=== PATIENT | female | born 1960 | race African-American/Black ===

== ENCOUNTER 2019-10-17 23:10 | Inpatient (IN) | payer OTHER ==
[~2019-10-17] VITALS: Ht 165.1 cm; Wt 29.5 kg
[2019-10-17] MEDS ORDERED: ONDANSETRON HCL 4MG/2ML INJ IV STA (23:15)
[2019-10-17] MEDS ORDERED: ALBUTEROL (0.083%) 2.5MG/3ML NEB HHN STA (23:15)
[2019-10-17] MEDS ORDERED: IPRATROPIUM BROMIDE (0.02%) 0.5MG/2.5ML NEB HHN STA (23:15)
[2019-10-17] MEDS ORDERED: METHYLPREDNISOLONE SOD SUCC 125 MG/2 ML VIAL IV STA (23:15)
[2019-10-17 23:44] LABS: BASOPHILS % 0.8 % (0.0-2.0); EOSINOPHILS % 8.8 % (0.0-5.0); HEMATOCRIT. 47.8 % (36.0-48.0); HEMOGLOBIN. 15.9 g/dL (12.0-16.0); LYMPHOCYTES % 19.8 % (20.0-50.0); MEAN CORPUSCULAR VOLUME 90.2 fL (81.0-99.0); MEAN PLATELET VOLUME 7.4 fl (7.4-10.4); MONOCYTES % 4.6 % (2.0-8.0); PLATELET 274 x1000/uL (130-400); RED CELL DISTRIBUTION WIDTH 13.3 % (11.6-14.6)
[2019-10-17 23:47] LABS: CHLORIDE 107 mEq/L (98-107)
[2019-10-18] MEDS ORDERED: ALBUTEROL (0.5%) 2.5MG/0.5ML NEB HHN ONE (00:15)
[2019-10-18] MEDS ORDERED: CLONIDINE 0.2MG TABLET PO ONE (00:15)
[2019-10-18 00:42] LABS: BG BASE EXCESS -4.6 mmol/L (-2.0-2.0); BG BILEVEL POS AIRWAY PRESSURE 15/5; BG CARBOXYHEMOGLOBIN 0.4 % (0.5-1.5); BG DEOXYHEMOGLOBIN 2.3 % (0.0-5.0); BG FRACTION INSPIRED OXYGEN 40; BG HCO3 ACT 21.1 mmol/L (22.0-26.0); BG METHEMOGLOBIN 0.5 % (0.0-1.5); BG OXYGEN SATURATION 97.7 % (92.0-98.5); BG OXYHEMOGLOBIN 96.8 % (94.0-97.0); BG PCO2 41.2 mmHg (35.0-45.0); BG PH 7.327 (7.350-7.450); BG PO2 104.8 mmHg (75.0-100.0); BG SAMPLE SITE RIGHT BRACHIAL; BG TOTAL HEMOGLOBIN 16.6 g/dL (12.0-18.0); BG VENT MODE MASK - BIPAP; BG VENT RATE 16 set
[2019-10-18] MEDS ORDERED: P20 MT (10:53)
[2019-10-18] MEDS ORDERED: ALBU05 IH (10:53)
[2019-10-18] MEDS ORDERED: AM250 MT (10:53)
[2019-10-18 11:00] VITALS: BP 118/66
[2019-10-18] MEDS ORDERED: DOCUSATE SODIUM 100MG CAPSULE PO PRN (13:30)
[2019-10-18] MEDS ORDERED: ONDANSETRON HCL 4MG/2ML INJ IV PRN (13:30)
[2019-10-18] MEDS ORDERED: GUAIFENESIN 200MG/10ML SUGAR FREE UDC PO PRN (13:30)
[2019-10-18] MEDS ORDERED: ACETAMINOPHEN 650MG SUPP PR PRN (13:30)
[2019-10-18] MEDS ORDERED: DIPHENHYDRAMINE 50MG/ML VIAL IV PRN (13:30)
[2019-10-18] MEDS ORDERED: NA PHOS,M-B/NA PHOS,DI-BA ENEMA 118ML PR PRN (13:30)
[2019-10-18] MEDS ORDERED: ACETAMINOPHEN 650MG/20.3ML UDC GT PRN (13:30)
[2019-10-18] MEDS ORDERED: CLONIDINE 0.1MG TABLET PO PRN (13:30)
[2019-10-18] MEDS ORDERED: MAGNESIUM/ALUMINUM HYDROXIDE/SIMETHICONE 30ML UDC PO PRN (13:30)
[2019-10-18 13:35] LABS: HEMATOCRIT. 45.8 % (36.0-48.0); HEMOGLOBIN. 15.4 g/dL (12.0-16.0); MEAN CORPUSCULAR HEMOGLOBIN 30.6 pg (28.0-32.0); MEAN CORPUSCULAR VOLUME 91.1 fL (81.0-99.0); MEAN PLATELET VOLUME 7.6 fl (7.4-10.4); MONOCYTES % 0.8 % (2.0-8.0); NEUTROPHILS % 88.2 % (40.0-76.0); PLATELET 277 x1000/uL (130-400); RED BLOOD CELL COUNT 5.03 mill/uL (4.2-5.4); RED CELL DISTRIBUTION WIDTH 13.4 % (11.6-14.6)
[2019-10-18 14:02] LABS: CHLORIDE 107 mEq/L (98-107)
[2019-10-18] MEDS: ALBUTEROL (0.083%) 2.5MG/3ML NEB HHN SCH ×2 (14:05→20:53)
[2019-10-18] MEDS ORDERED: LEVOFLOXACIN 500MG PREMIX 100 ML IV SCH (14:30)
[2019-10-18] MEDS: ENOXAPARIN 40MG/0.4ML SYR SUBCUT SCH (14:33)
[2019-10-18] MEDS: SODIUM CHLORIDE 0.45% 1,000 ML IV SCH (14:34)
[2019-10-18] MEDS: METHYLPREDNISOLONE SOD SUCC 40 MG/ML VIAL IV SCH ×2 (14:34→17:16)
[2019-10-18] MEDS: ACETAMINOPHEN 325MG TABLET PO PRN (14:41)
[2019-10-18 16:00] VITALS: BP 125/76
[2019-10-18 16:33] VITALS: BP 125/76
[2019-10-18 20:00] VITALS: BP 125/70
[2019-10-19] VITALS: BP 125/75
[2019-10-19] MEDS: ALBUTEROL (0.083%) 2.5MG/3ML NEB HHN SCH ×2 (00:29→09:01)
[2019-10-19] MEDS: METHYLPREDNISOLONE SOD SUCC 40 MG/ML VIAL IV SCH ×3 (00:30→18:06)
[2019-10-19 04:00] VITALS: BP 125/71
[2019-10-19] MEDS: SODIUM CHLORIDE 0.45% 1,000 ML IV SCH ×2 (05:02→22:49)
[2019-10-19 08:16] LABS: HEMATOCRIT. 45.6 % (36.0-48.0); HEMOGLOBIN. 15.3 g/dL (12.0-16.0); MEAN CORPUSCULAR VOLUME 89.6 fL (81.0-99.0); MEAN PLATELET VOLUME 7.9 fl (7.4-10.4); PLATELET 282 x1000/uL (130-400); RED BLOOD CELL COUNT 5.09 mill/uL (4.2-5.4); RED CELL DISTRIBUTION WIDTH 13.5 % (11.6-14.6)
[2019-10-19 08:23] VITALS: BP 113/76
[2019-10-19 08:51] LABS: CHLORIDE 108 mEq/L (98-107)
[2019-10-19] MEDS: ACETAMINOPHEN 325MG TABLET PO PRN (08:55)
[2019-10-19 09:05] LABS: LDL CHOLESTEROL 128 mg/dL (5-100)
[2019-10-19 09:07] LABS: HDL CHOLESTEROL 57 mg/dL (40-59)
[2019-10-19 12:00] VITALS: BP 125/72
[2019-10-19] MEDS: ENOXAPARIN 40MG/0.4ML SYR SUBCUT SCH (13:32)
[2019-10-19] MEDS: IPRATROPIUM BROMIDE (0.02%) 0.5MG/2.5ML NEB HHN SCH ×3 (14:10→20:51)
[2019-10-19 14:31] LABS: PLATELET ESTIMATE NORMAL
[2019-10-19] MEDS ORDERED: AZITHROMYCIN 500 MG in DEXT 5% WATER 250 ML IV SCH (15:00)
[2019-10-19 16:00] VITALS: BP 119/73
[2019-10-19] MEDS ORDERED: CEFTRIAXONE 1 G PREMIX 50 ML IV SCH (16:00)
[2019-10-19] MEDS: ALBUTEROL (0.083%) 2.5MG/3ML NEB HHN PRN (16:18)
[2019-10-19] MEDS: BENZONATATE 100MG CAPSULE PO SCH ×2 (16:24→21:12)
[2019-10-19] MEDS ORDERED: MONTELUKAST SODIUM 10MG TABLET PO SCH (17:00)
[2019-10-19 20:00] VITALS: BP 124/63
[2019-10-19] MEDS ORDERED: LORATADINE 10MG TABLET PO SCH (21:00)
[2019-10-19] MEDS: FAMOTIDINE 20MG TABLET PO SCH (21:12)
[2019-10-20] VITALS: BP 111/62
[2019-10-20] MEDS: METHYLPREDNISOLONE SOD SUCC 40 MG/ML VIAL IV SCH ×2 (00:26→05:41)
[2019-10-20] MEDS: IPRATROPIUM BROMIDE (0.02%) 0.5MG/2.5ML NEB HHN SCH ×2 (01:00→04:06)
[2019-10-20 04:00] VITALS: BP 108/62
[2019-10-20] MEDS: ALBUTEROL (0.083%) 2.5MG/3ML NEB HHN PRN (04:17)
[2019-10-20] MEDS: BENZONATATE 100MG CAPSULE PO SCH (05:41)
[2019-10-20] MEDS ORDERED: AZIT500T3 MT (08:25)
[2019-10-20] MEDS ORDERED: FLUT9.9S BOTHNSTRLS (08:25)
[2019-10-20] MEDS: FAMOTIDINE 20MG TABLET PO SCH (09:10)
[2019-10-20 09:28] LABS: CHLORIDE 105 mEq/L (98-107)
[2019-10-20 09:30] LABS: HEMATOCRIT 44.4 % (36.0-48.0); HEMOGLOBIN 14.7 g/dL (12.0-16.0); MEAN CORPUSCULAR HEMOGLOBIN 30.2 pg (28.0-32.0); PLATELET 239 x1000/uL (130-400); RED BLOOD CELL COUNT 4.88 mill/uL (4.2-5.4); RED CELL DISTRIBUTION WIDTH 13.4 % (11.6-14.6)
[2019-10-20 11:05] VITALS: BP 122/89
[2019-10-20] MEDS ORDERED: IPRA3AMP9 HHN (13:03)
== END 2019-10-20 16:20 | disposition home or self-care (01) | DRG 871 ==
LOC: ER 23:10 → 8WST 10-18 00:15 → ENRESERV 10-18 07:33
PROVIDERS: ADMIT Family Medicine; ATTEND Family Medicine
PROC: 5A09357 Assistance with Respiratory Ventilation, Less than 24 Consecutive Hours, Continuous Positive Airway Pressure (ICD-10-PCS; principal; 2019-10-18)
DX: A41.9 Sepsis, unspecified organism (principal); J18.9 Pneumonia, unspecified organism; E87.2 Acidosis; J45.901 Unspecified asthma with (acute) exacerbation; R09.02 Hypoxemia; I10 Essential (primary) hypertension; E86.0 Dehydration; D72.1 Eosinophilia; J32.9 Chronic sinusitis, unspecified; R06.03 Acute respiratory distress; Z79.899 Other long term (current) drug therapy
CPT/HCPCS: 36415; 36600; 71045; 80048; 80061; 82375; 82805; 83880; 84484; 85027; 93005; 94640; 94644; 94660; 99291; J0456; J0696; J1650; J1956; J2405; J2920; J2930; J7060; J7611

== ENCOUNTER 2025-10-03 23:42 | Inpatient (IN) | payer BC, OTHER ==
[~2025-10-03] VITALS: Ht 162.6 cm; Wt 50.0 kg
[~2025-10-03 23:42] MED LIST: ALBU05 IH; AZIT500T MT; FLUT9.9S BOTHNSTRLS; IPRA3AMP9 HHN; P20 MT
[2025-10-03 23:53] VITALS: O2SAT 99
[2025-10-04 01:18] LABS: HEMATOCRIT. 43.6 % (36.0-48.0); HEMOGLOBIN. 14.8 g/dL (12.0-16.0); MEAN PLATELET VOLUME 8.1 fl (7.4-10.4); PLATELET 212 x1000/uL (130-400); RED BLOOD CELL COUNT 4.83 mill/uL (4.2-5.4); RED CELL DISTRIBUTION WIDTH 12.4 % (11.6-14.6)
[2025-10-04] MEDS: SODIUM CHLORIDE 0.9% 1,000 ML IV ONE (01:29)
[2025-10-04] MEDS: MORPHINE SULFATE 4 MG/ML INJ (FOR IV/IM USE) IV ONE (01:29)
[2025-10-04] MEDS: ONDANSETRON HCL 4MG/2ML INJ IV ONE (01:29)
[2025-10-04] MEDS: PANTOPRAZOLE SODIUM 40 MG/VIAL IV ONE (01:29)
[2025-10-04 01:37] LABS: CREATININE 0.8 mg/dL (0.6-1.0)
[2025-10-04 01:38] LABS: UREA NITROGEN BLOOD 17 mg/dL (9-23)
[2025-10-04 01:40] LABS: ASPARTATE AMINOTRANSFERASE 12 IU/L (<34); BILIRUBIN DIRECT 0.3 mg/dL (<=3.0); BILIRUBIN TOTAL 0.9 mg/dL (0.1-1.0); PROTEIN TOTAL 7.5 g/dL (6.0-8.3)
[2025-10-04 03:43] LABS: BAND% 4.0 % (1.0-6.0); EOSINOPHILS % MANUAL 1.0 % (0.0-5.0); LYMPHOCYTES % MANUAL 7.0 % (20.0-60.0); MONOCYTES % MANUAL 4.0 % (2.0-8.0); NEUTROPHILS % MANUAL 84.0 % (45.0-75.0); PLATELET ESTIMATE NORMAL
[2025-10-04 06:00] VITALS: BP 117/66; PULSE 90; RESP 18; TEMP 38.0304
[2025-10-04 06:10] VITALS: BP 117/66; PULSE 92; RESP 18; TEMP 37.9; O2SAT 98
[2025-10-04] MEDS: IOHEXOL-300 100 ML BOTTLE ONE (06:25)
[2025-10-04] MEDS ORDERED: IPRATROPIUM/ALBUTEROL 0.5-3(2.5)MG/3ML NEB HHN PRN (10:45)
[2025-10-04] MEDS ORDERED: CLONIDINE 0.1MG TABLET PO PRN (10:45)
[2025-10-04] MEDS ORDERED: GUAIFENESIN 200MG/10ML SUGAR FREE UDC PO PRN (10:45)
[2025-10-04] MEDS ORDERED: DOCUSATE SODIUM 100MG CAPSULE PO PRN (10:45)
[2025-10-04] MEDS ORDERED: ACETAMINOPHEN 325MG TABLET PO PRN (10:45)
[2025-10-04] MEDS ORDERED: ONDANSETRON HCL 4MG/2ML INJ IV PRN (10:45)
[2025-10-04 12:00] VITALS: BP 120/68; PULSE 91; RESP 16; TEMP 36.5; O2SAT 99
[2025-10-04] MEDS: ACETAMINOPHEN 325MG TABLET PO PRN (13:23)
[2025-10-04 15:54] VITALS: BP 118/69; PULSE 96; RESP 18; TEMP 36.6; O2SAT 99
[2025-10-04 18:14] LABS: HEPATITIS C AB NON REACTIVE (Neg) (Negative)
[2025-10-04 20:00] VITALS: BP 111/67; PULSE 78; RESP 18; TEMP 36.3; O2SAT 99
[2025-10-05] VITALS: BP_SYST 120; BP_SYST 123; BP_DIAS 71; BP_DIAS 74; PULSE 69; PULSE 74; RESP 1; RESP 18; TEMP 36.1; TEMP 36.6; O2SAT 98; O2SAT 99
[2025-10-05 04:00] VITALS: BP 120/74; PULSE 74; RESP 1; RESP 18; TEMP 36.6; O2SAT 99
[2025-10-05] MEDS: SODIUM CHLORIDE 0.9% 1,000 ML IV SCH (06:00)
[2025-10-05 08:00] VITALS: BP 115/55; PULSE 67; RESP 18; TEMP 37; O2SAT 96
[2025-10-05] MEDS: PANTOPRAZOLE SODIUM 40 MG/VIAL IV SCH (08:39)
[2025-10-05 08:50] LABS: BASOPHILS % 0.4 % (0.0-2.0); EOSINOPHILS % 8.4 % (0.0-5.0); HEMATOCRIT. 41.6 % (36.0-48.0); HEMOGLOBIN. 14.1 g/dL (12.0-16.0); LYMPHOCYTES % 34.1 % (20.0-50.0); MEAN PLATELET VOLUME 7.9 fl (7.4-10.4); MONOCYTES % 10.0 % (2.0-8.0); NEUTROPHILS % 47.1 % (40.0-76.0); PLATELET 173 x1000/uL (130-400); RED BLOOD CELL COUNT 4.59 mill/uL (4.2-5.4); RED CELL DISTRIBUTION WIDTH 12.4 % (11.6-14.6)
[2025-10-05 09:18] LABS: T4 FREE 1.11 ng/dL (0.89-1.76)
[2025-10-05 09:19] LABS: CREATININE 0.6 mg/dL (0.6-1.0); TRIGLYCERIDE 112 mg/dL (0-150); UREA NITROGEN BLOOD 7 mg/dL (9-23)
[2025-10-05 09:20] LABS: LDL CHOLESTEROL 95 mg/dL (5-100)
== END 2025-10-05 12:30 | disposition left against medical advice (07) | DRG 392 ==
LOC: ER 23:42 → 7WST 10-04 03:14 → EDBEDREQ 10-04 03:42 → EDBEDREQSVC 10-04 03:42 → EDBEDREQTM 10-04 03:42 → ENRESERV 10-04 05:25 → 7WST 10-04 23:32
PROVIDERS: ADMIT Internal Medicine; ATTEND Internal Medicine
DX: A08.4 Viral intestinal infection, unspecified (principal); N17.9 Acute kidney failure, unspecified; J45.909 Unspecified asthma, uncomplicated; E86.0 Dehydration; Z53.29 Procedure and treatment not carried out because of patient's decision for other reasons; R73.9 Hyperglycemia, unspecified; Z55.6 Problems related to health literacy; Z79.899 Other long term (current) drug therapy
CPT/HCPCS: 36415; 74177; 80048; 80061; 80076; 83036; 84439; 84443; 85025; 86705; 87340; 96361; 96374; 96375; 99285; A4606; J2270; J2405; J2470; J7030; Q9967